=== PATIENT | female | born 1955 | race Two or more races ===

== ENCOUNTER 2018-10-14 10:50 | Outpatient (CLI) | payer OTHER | END 2018-10-14 15:03 | disposition home or self-care (01) | LOC: LAB 10:50 | DX: M79.651 Pain in right thigh (principal); M79.604 Pain in right leg; Z76.89 Persons encountering health services in other specified circumstances; E55.9 Vitamin D deficiency, unspecified; M85.9 Disorder of bone density and structure, unspecified; E21.3 Hyperparathyroidism, unspecified; E88.89 Other specified metabolic disorders; M81.8 Other osteoporosis without current pathological fracture; E56.1 Deficiency of vitamin K ==

== ENCOUNTER → 2018-12-21 10:22 | Outpatient (CLI) | payer OTHER ==
[~2018-12-21 10:22] MED LIST: FOSAMAX70 MG PO
== END | disposition home or self-care (01) ==
LOC: LAB 10:22 → RAD 10:22
DX: D64.89 Other specified anemias (principal); E88.89 Other specified metabolic disorders; D68.8 Other specified coagulation defects; N39.0 Urinary tract infection, site not specified; Z22.322 Carrier or suspected carrier of Methicillin resistant Staphylococcus aureus; I49.8 Other specified cardiac arrhythmias

== ENCOUNTER 2018-12-22 15:37 | Inpatient (IN) | payer OTHER ==
[~2018-12-22] VITALS: Ht 160 cm; Wt 69.4 kg
== END 2019-01-07 10:30 | disposition home or self-care (01) | DRG 470 ==
LOC: SURG 12-28 10:00 → SURH 01-04 06:09 → O/R 01-04 06:09 → SURG 01-04 10:00 → SURH 01-04 13:09 → SURG 01-04 13:30 → SURH 01-07 10:30
PROVIDERS: ADMIT Orthopaedic Surgery
PROC: 0SRC0J9 Replacement of Right Knee Joint with Synthetic Substitute, Cemented, Open Approach (ICD-10-PCS; principal; 2019-01-04 13:30)
DX: M17.11 Unilateral primary osteoarthritis, right knee (principal); D62 Acute posthemorrhagic anemia

== ENCOUNTER → 2019-01-14 12:36 | Outpatient (CLI) | payer OTHER | END | disposition home or self-care (01) | LOC: LAB 12:36 | DX: M06.4 Inflammatory polyarthropathy (principal); D64.89 Other specified anemias ==

== ENCOUNTER 2019-01-25 10:25 | Outpatient (CLI) | payer OTHER | END 2019-01-25 16:25 | disposition home or self-care (01) | LOC: LAB 10:25 | DX: D64.89 Other specified anemias (principal); M06.4 Inflammatory polyarthropathy ==

== ENCOUNTER 2019-04-08 10:26 | Outpatient (CLI) | payer OTHER | END 2019-04-08 12:36 | disposition home or self-care (01) | LOC: LAB 10:26 | DX: E55.9 Vitamin D deficiency, unspecified (principal); E21.3 Hyperparathyroidism, unspecified; E88.89 Other specified metabolic disorders; M81.8 Other osteoporosis without current pathological fracture; E56.1 Deficiency of vitamin K; M85.88 Other specified disorders of bone density and structure, other site ==

== ENCOUNTER 2019-04-12 13:01 | Outpatient (CLI) | payer OTHER | END 2019-04-12 13:11 | disposition home or self-care (01) | LOC: NUCLEAR 13:01 | DX: M81.0 Age-related osteoporosis without current pathological fracture (principal) ==

== ENCOUNTER 2019-12-28 08:51 | Outpatient (CLI) | payer OTHER | END 2019-12-28 08:57 | disposition home or self-care (01) | LOC: RAD 08:51 | PROVIDERS: ATTEND Orthopaedic Surgery | DX: Z96.651 Presence of right artificial knee joint (principal) ==

== ENCOUNTER 2022-08-08 11:36 | Outpatient (CLI) | payer OTHER | END 2022-08-08 11:42 | disposition home or self-care (01) | LOC: RAD 11:36 | PROVIDERS: ATTEND Physical Medicine & Rehabilitation | DX: M25.552 Pain in left hip (principal) ==

== ENCOUNTER 2022-08-13 14:55 | Outpatient (CLI) | payer OTHER | END 2022-08-13 14:58 | disposition home or self-care (01) | LOC: LAB 14:55 | PROVIDERS: ATTEND Radiology Diagnostic Radiology | DX: M54.40 Lumbago with sciatica, unspecified side (principal) ==

== ENCOUNTER 2022-08-27 10:38 | Outpatient (CLI) | payer OTHER | END 2022-08-27 10:44 | disposition home or self-care (01) | LOC: MRI 10:38 | PROVIDERS: ATTEND Specialist | DX: M54.40 Lumbago with sciatica, unspecified side (principal); M06.4 Inflammatory polyarthropathy | CPT/HCPCS: 72158; Q9965; 72148 ==